=== PATIENT | female | born 1985 | race Caucasian/White ===

== ENCOUNTER 2019-04-09 10:27 | Inpatient (IN) ==
[2019-04-09] MEDS ORDERED: DULCOLAX PR PRN (12:20)
[2019-04-09] MEDS ORDERED: DESYREL PO PRN (12:20)
[2019-04-09] MEDS ORDERED: ROBAXIN PO PRN (12:20)
[2019-04-09] MEDS ORDERED: SINEMET 25/100 PO PRN (12:20)
[2019-04-09] MEDS ORDERED: BENTYL PO PRN (12:20)
[2019-04-09] MEDS ORDERED: D5W 1,000 ML IV PRN (12:20)
[2019-04-09] MEDS ORDERED: NICODERM PATCH TD PRN (12:20)
[2019-04-09] MEDS ORDERED: ATARAX PO PRN (12:20)
[2019-04-09] MEDS ORDERED: MAALOX PLUS LIQUID PO PRN (12:20)
[2019-04-09] MEDS ORDERED: ZOFRAN IV PRN (12:20)
[2019-04-09] MEDS ORDERED: LIBRIUM PO PRN (12:20)
[2019-04-09] MEDS ORDERED: SENOKOT PO PRN (12:20)
[2019-04-09] MEDS ORDERED: ZOFRAN ODT PO PRN (12:20)
[2019-04-09] MEDS ORDERED: TYLENOL PO PRN (12:20)
[2019-04-09] MEDS ORDERED: IMODIUM PO PRN (12:20)
[2019-04-09] MEDS ORDERED: PHENOBARBITAL IV PRN (12:20)
[2019-04-09] MEDS ORDERED: TUBERSOL ID ONE (12:20)
[2019-04-09] MEDS ORDERED: MOTRIN PO PRN (12:20)
[2019-04-09 12:44] LABS: HEMATOCRIT 42.1 % (37.0-47.0); HEMOGLOBIN 13.7 g/dL (12.0-16.0); MCH 31.5 PG (27-31); MCHC 32.5 g/dL (33-37); MCV 96.8 FL (81-99); MPV 10.5 FL (7.4-10.4); RBC 4.35 XMIL (4.2-5.4); RDW 12.1 % (11.5-14.5); WBC 11.64 X1000 (4.8-10.8)
[2019-04-09 13:01] LABS: AMYLASE 36 U/L (20-200); LIPASE 19 U/L (13-60)
[2019-04-09 13:02] LABS: INR 0.85
[2019-04-09 13:06] LABS: AGAP 11; ALBUMIN 3.8 g/dL (3.5-5.0); ALKALINE PHOSPHATASE 106 U/L (32-104); BUN 16 mg/dL (8-22); CALCIUM 8.9 mg/dL (8.8-10.2); CHLORIDE 106 mmol/L (98-107); COSMO 277; CREATININE 0.7 mg/dL (0.5-0.9); ESTIMATED GFR > 60; GLUCOSE 99 mg/dL (70-104); GOT 14 U/L (10-30); GPT 14 U/L (10-36); POTASSIUM 4.2 mmol/L (3.5-5.1); SODIUM 138 mmol/L (136-145); TCO2 22 mmol/L (25-35); TOTAL BILIRUBIN < 0.15 mg/dL (0.20-1.00)
[2019-04-09] MEDS ORDERED: SUBOXONE 2 MG/0.5 MG FILM SL SCH (14:00)
[2019-04-09] MEDS ORDERED: M.V.I.-12 10 ML, FOLIC ACID 1 MG, MAGNESIUM SULFATE 1 GM, THIAMINE 100 MG in NS 1,000 ML IV ONE (15:00)
[2019-04-09 15:25] LABS: URINE SOURCE CLEAN CATCH
[2019-04-09 15:27] LABS: BILIRUBIN URINE NEGATIVE (NEGATIVE); BLOOD URINE SMALL (NEGATIVE); COLOR YELLOW; GLUCOSE URINE NEGATIVE (NEGATIVE); KETONE URINE NEGATIVE (NEGATIVE); LEUKOCYTES URINE NEGATIVE (NEGATIVE); NITRITE URINE NEGATIVE (NEGATIVE); PROTEIN URINE NEGATIVE (NEGATIVE); SP GRAVITY URINE 1.022; TURBIDITY URINE CLEAR (CLEAR); UR EPITHELIAL CELLS <10 /HPF (<10); URINE BACTERIA NEGATIVE /HPF; URINE RBC <10 /HPF (<10); URINE WBC <10 /HPF (<10); UROBILINOGEN URINE NORMAL (NORMAL)
[2019-04-09 15:37] LABS: UR AMPHETAMINES QUAL NONE DETECTED (NONE DETECT); UR BARBITUATES QUAL NONE DETECTED (NONE DETECT); UR BENZODIAZEPIN QUAL NONE DETECTED (NONE DETECT); UR CANNABINOIDS QUAL NONE DETECTED (NONE DETECT); UR COCAINE QUAL NONE DETECTED (NONE DETECT); UR METHADONE QUAL NONE DETECTED (NONE DETECT); UR METHAMPHETAMINE QUAL NONE DETECTED (NONE DETECT); UR OPIATES QUAL PRESUMPTIVE POSITIVE (NONE DETECT); UR OXYCODONE QUAL NONE DETECTED (NONE DETECT); UR PCP QUAL NONE DETECTED (NONE DETECT); UR PROPOXYPHENE QUAL NONE DETECTED (NONE DETECT); UR TCA QUAL NONE DETECTED (NONE DETECT)
[2019-04-09] MEDS: SUBOXONE 2 MG/0.5 MG FILM SL SCH (18:08)
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
[2019-04-09] MEDS: SEROQUEL PO PRN (22:53)
[2019-04-10] MEDS: SUBOXONE 2 MG/0.5 MG FILM SL SCH (06:02)
[2019-04-10] MEDS: PROTONIX PO SCH (06:03)
[2019-04-10] MEDS ORDERED: SUBOXONE 2 MG/0.5 MG FILM SL ONE (08:10)
[2019-04-10] MEDS: VITAMIN B-1 PO SCH (09:43)
[2019-04-10] MEDS: THERA M PLUS PO SCH (09:43)
[2019-04-10] MEDS: FOLIC ACID PO SCH (09:44)
[2019-04-10] MEDS: SUBOXONE 8 MG/2 MG FILM SL SCH (21:47)
[2019-04-10] MEDS: SEROQUEL PO PRN (21:47)
--- NOTE | 2019-04-11 04:18 | PROGRESS NOTE ---
DATE: 04/10/2019 SUBJECTIVE: Patient notes she still feels terrible, still having muscle aches, sweating. Notes Suboxone does make her feel better, although does not alleviate her symptoms. Does not last long enough. PHYSICAL EXAMINATION: Vital Signs: Reviewed. General: She is awake, alert. She is in no distress. HEENT: Normocephalic. Neck: Supple. Cardiovascular: Regular rate. Chest: Clear. Abdomen: Soft. Extremities: Moves all extremities. ASSESSMENT: 1. Nausea, vomiting. 2. Abdominal pain. 3. Myalgias. 4. Paresthesias. 5. Paroxysmal sweating. 6. Opiates abuse withdrawal and stabilization. PLAN: We will continue patient in the hospital. Continue Suboxone, although we will increase the dose to 8/2 and will follow. Continue counseling. cc: Alvaro Dove MD
[2019-04-11] MEDS: PROTONIX PO SCH (06:39)
[2019-04-11] MEDS: VITAMIN B-1 PO SCH (12:58)
[2019-04-11] MEDS: FOLIC ACID PO SCH (12:58)
[2019-04-11] MEDS: THERA M PLUS PO SCH (12:58)
[2019-04-11] MEDS: SUBOXONE 8 MG/2 MG FILM SL SCH ×2 (12:59→21:45)
--- NOTE | 2019-04-11 20:40 | PROGRESS NOTE ---
DATE: 04/11/2019 SUBJECTIVE: The patient notes she still feels terrible, but her muscle aches seem to be somewhat better. Thinks the Suboxone helped a little bit last night, but still very worried about going home today. PHYSICAL EXAMINATION: Vital Signs: Reviewed. She is afebrile. Temperature 98, pulse 71, respiratory rate 20, BP 100 systolic. General: She is awake, alert, oriented. She is in no distress. Patient is pleasant. HEENT: Normocephalic. Neck: Supple. Cardiovascular: Regular rate. Chest: Clear. Abdomen: Soft. Extremities: Moves all extremities. ASSESSMENT: 1. Nausea, vomiting. 2. Abdominal pain. 3. Myalgias. 4. Paresthesias. 5. Paroxysmal sweating. 6. Opiate abuse withdrawal and stabilization. PLAN: We are going to continue patient in the hospital, continue counseling, continue to follow further orders as needed. cc: Alvaro Dove MD
[2019-04-11] MEDS: SEROQUEL PO PRN (22:29)
[2019-04-12] MEDS: PROTONIX PO SCH (06:07)
[2019-04-12] MEDS: FOLIC ACID PO SCH (09:25)
[2019-04-12] MEDS: SUBOXONE 8 MG/2 MG FILM SL SCH (09:25)
[2019-04-12] MEDS: THERA M PLUS PO SCH (09:25)
[2019-04-12] MEDS: VITAMIN B-1 PO SCH (09:26)
[2019-04-12 16:30] VITALS: BP 116/50
--- NOTE | 2019-04-13 05:37 | DISCHARGE SUMMARY ---
ADMISSION DATE: 04/09/2019 DISCHARGE DATE: 04/12/2019 DISCHARGE DIAGNOSIS: 1. Nausea, vomiting. 2. Abdominal pain. 3. Myalgias. 4. Paresthesias. 5. Paroxysmal sweating. 6. Opiate abuse, withdrawal and stabilization. CONSULTATIONS: None. PROCEDURES: None. BRIEF HOSPITAL COURSE: The patient is a 33-year-old female who presented to the hospital, treated in the usual fashion, placed on Solu-Medrol. We attempted to decrease her dose on the 2nd day she was here and that was ineffective and she felt as though she was going to relapse. Therefore, she wanted to go home on Suboxone. Therefore, we increased her dose. DISPOSITION: Patient has tolerated 10/26 . She is awake, alert. She is in no distress. Therefore, we will discharge her home. Discussed with her that she is to avoid all persons, places, and situations in which she has been using and abusing in the past. She needs outpatient life counseling as well as drug counseling. TIME SPENT: Greater than 30 minutes spent in total care. cc: Alvaro Dove MD
== END 2019-04-12 15:28 | disposition home or self-care (01) | DRG 897 ==
LOC: P.DIRADM 11:17 → P.MEDSURG 11:52
PROVIDERS: ADMIT Family Medicine; ATTEND Family Medicine